=== PATIENT | male | born 1985 | race American Indian/Alaskan Native ===

== ENCOUNTER 2017-12-28 00:27 | Emergency (ER) | payer SELFPAY ==
[2017-12-28 00:44] VITALS: BP 119/76
--- NOTE | 2017-12-28 01:56 | XRay Report ---
FINAL REPORT EXAM: XR CHEST ROUTINE 2V HISTORY: productive cough TECHNIQUE: PA and lateral views of the chest were submitted. FINDINGS: There is patchy airspace disease in the right middle lobe compatible with pneumonia. The left lung is clear. The heart size is normal. Pleural fluid is not seen. The skeletal structures are well-maintained. IMPRESSION: Right middle lobe pneumonia.
[2017-12-28] MEDS ORDERED: LEVAQUIN PO ONE (01:57)
[2017-12-28] MEDS ORDERED: MOTRIN PO ONE (01:59)
--- NOTE | 2017-12-28 02:04 | Emergency Department Report ---
HPI - General Chief Complaint: Upper Respiratory Infection Time Seen by Provider: 12/28/17 01:39 - HPI HPI: Room 30 The patient is a 32-year-old male presented with a chief complaint of cough and chest pain. The patient states for the past 4 days he's had sweats, chills and a cough productive of greenish brown sputum. Patient states the symptoms improved but he began having spasms in his right chest. Patient missed a subjective fever at home. Location: [See above] Duration: 4 days Quality: Spasms Severity: Moderate Modifying factors: [see above] Context: [see above] Mode of transportation: Patient is driving and there are no visitors present that are able to drive. Small children at bedside ED Past Medical Hx - Past Medical History Previous Medical History?: No - Surgical History Past Surgical History?: No - Family History Family history: no significant - Social History Smoking Status: Current Every Day Smoker (1/3 pack per day) Substance Use Type: Alcohol - Medications Home Medications: Home Medications Medication Instructions Recorded Confirmed Last Taken Type Ciprofloxacin HCl [Ciprofloxacin 500 mg PO Q12H #20 tab 12/28/17 Unknown Rx TAB] HYDROcodone/APAP 5-325 [[place] 1 - 2 each PO Q6HR PRN #14 tablet 12/28/17 Unknown Rx 5/325] Ibuprofen [Motrin 800 MG tab] 800 mg PO Q8HR PRN #20 tablet 12/28/17 Unknown Rx ED Review of Systems ROS: Stated complaint: CHEST PAIN,COUGH Other details as noted in HPI Constitutional: fever (subjective) Eyes: denies: eye pain ENT: denies: throat pain Respiratory: cough Cardiovascular: chest pain Endocrine: no symptoms reported Gastrointestinal: denies: abdominal pain Genitourinary: denies: dysuria Musculoskeletal: myalgia Neurological: denies: headache Physical Exam - Physical Exam Vital Signs: Vital Signs 12/28/17 00:35 Temperature 99.1 F Pulse Rate 99 H Respiratory 18 Rate Blood Pressure 119/76 O2 Sat by Pulse 97 Oximetry Physical Exam: GENERAL: The patient is well-developed well-nourished male sitting on stretcher not appearing to be in acute distress. [] HEENT: Normocephalic. Atraumatic. Extraocular motions are intact. Patient has moist mucous membranes. NECK: Supple. Trachea midline CHEST/LUNGS: Clear to auscultation. There is no respiratory distress noted. HEART/CARDIOVASCULAR: Regular. There is no tachycardia. There is no gallop rub or murmur. ABDOMEN: Abdomen is soft, nontender. Patient has normal bowel sounds. There is no abdominal distention. SKIN: There is no rash. There is no edema. There is no diaphoresis. NEURO: The patient is awake, alert, and oriented. The patient is cooperative. The patient has normal speech and gait. MUSCULOSKELETAL: TThere is no evidence of acute injury. ED Course Vital Signs 12/28/17 00:35 Temperature 99.1 F Pulse Rate 99 H Respiratory 18 Rate Blood Pressure 119/76 O2 Sat by Pulse 97 Oximetry ED Medical Decision Making - Lab Data Result diagrams: 12/28/17 02:04 - EKG Data -: EKG Interpreted by Me EKG shows normal: sinus rhythm Rate: normal - EKG Data When compared to previous EKG there are: previous EKG unavailable Interpretation: other (early repolarization. No ischemic changes seen) - Radiology Data Radiology results: image reviewed (chest x-ray) interpreted by me: Chest x-ray-right middle lobe infiltrate - Differential Diagnosis pneumonia, bronchitis Critical care attestation.: If time is entered above; I have spent that time in minutes in the direct care of this critically ill patient, excluding procedure time. ED Disposition Clinical Impression: Pneumonia, Cough Disposition: DC-01 TO HOME OR SELFCARE Is pt being admited?: No Does the pt Need Aspirin: No Condition: Stable Instructions: Bacterial Pneumonia (ED) Additional Instructions: Return to the emergency department immediately should you develop worsening symptoms, fever, inability to tolerate food or liquid or any other concerns. Prescriptions: Ciprofloxacin HCl [Ciprofloxacin TAB] 500 mg PO Q12H #20 tab HYDROcodone/APAP 5-325 [[place] 5/325] 1 - 2 each PO Q6HR PRN #14 tablet PRN Reason: Pain Ibuprofen [Motrin 800 MG tab] 800 mg PO Q8HR PRN #20 tablet PRN Reason: Pain , Severe (7-10) Referrals: [facility] [Outside] - 3-5 Days Forms: Work/School Release Form(ED)
[2017-12-28 02:22] LABS: Basophils % (Auto) 0.6 % (0.0-1.8); Eosinophils # (Auto) 0.1 K/mm3 (0.0-0.4); Hematocrit 40.4 % (35.5-45.6); Hemoglobin 14.3 gm/dl (11.8-15.2); Mean Corpuscular HGB Conc 35 % (32-34); Mean Corpuscular Hemoglobin 36 pg (28-32); Mean Corpuscular Volume 100 fl (84-94); Monocytes # (Auto) 0.6 K/mm3 (0.0-0.8); Platelet Count 332 K/mm3 (140-440); Red Blood Count 4.03 M/mm3 (3.65-5.03); Red Cell Distribution Width 13.1 % (13.2-15.2)
== END 2017-12-28 02:30 | disposition home or self-care (01) ==
LOC: ED 00:27
DX: J18.9 Pneumonia, unspecified organism (principal); F17.200 Nicotine dependence, unspecified, uncomplicated
CPT/HCPCS: 36415; 71046; 85025; 87040; 93005; 93010; 99284